=== PATIENT | female | born 1950 | race Caucasian/White ===

== ENCOUNTER 2017-09-18 09:42 | Outpatient (CLI) | payer MEDICARE ==
[2017-09-18 10:07] LABS: Estimated GFR-MDRD - POC Greater than 90
--- NOTE | 2017-09-18 10:43 | RAD ---
LUMBAR SPINE TWO TO THREE VIEW SERIES: INDICATIONS: Lumbar radiculopathy. Neurogenic claudication. FINDINGS: There is postoperative fusion of L4-L5. The intervertebral disk space prosthesis, located to the lef t of midline, does project anterior to the [place] disk space, indicating anterior migration beyond ap propriate location. There is sclerosis of the inferior L1 and superior L2 vertebral bodies, indicati ng modic type III degenerative change. Grade 1 spondylolisthesis is present at L4-L5. There is righ t convexity scoliosis centered at the L3 segment. A metallic clip is seen overlying the midline of t he pelvis, and there are metallic clips at the medial right upper quadrant. IMPRESSION: 1. Anterior migration of disk space prosthesis at L4-L5, located anterior to the [place] disk space. 2. Multilevel degenerative change and dextroscoliosis. POS: NEENA
--- NOTE | 2017-09-18 11:31 | MRI ---
MRI LUMBAR SPINE WITH AND WITHOUT CONTRAST: INDICATIONS: Lumbar radiculopathy. Prior lumbar surgery. Neurogenic claudication. TECHNIQUE: Multiplanar, multisequence imaging obtained. Post contrast images obtained with the administration o f 20 mL of MultiHance IV. FINDINGS: Lumbar vertebrae maintain height. Severe degenerative disk changes are seen at L1-L2 and at L2-L3. Postoperative changes at L4-L5 with pedicle screws and partial fusion at this level. The disk space at L3-L4 is preserved. Prominent anterior osteophytes with mild wedging of L1 and L2. T12-L1: No significant disk bulge or protrusion. L1-L2: Loss of disk space. Posterior disk bulge and hypertrophic changes flatten the thecal sac. F acet hypertrophy. Posterior epidural fat. Mild to moderate central canal stenosis. Bilateral martina inal narrowing. L2-L3: Slight posterior retropulsion. Broad-based disk bulge. Facet and ligamentous hypertrophy. Moderate central canal stenosis. Left foraminal stenosis. L3-L4: Diffuse disk bulge. Facet and ligamentous hypertrophy. Mild to moderate central canal steno sis. Mild left foraminal stenosis. L4-L5: Loss of disk space with partial fusion. No residual or recurrent disk. No significant centr al canal stenosis. Mild left foraminal narrowing secondary to hypertrophic change. L5-S1: There is a central disk protrusion, centrally and slightly to the left, which indents the the [place] sac and displaces the traversing left S1 nerve root. Facet hypertrophy. Mild to moderate centra l canal stenosis. Bilateral foraminal narrowing secondary to diffuse disk bulge and facet hypertroph y. This protrusion shows slight inferior extension. IMPRESSION: 1. Significant degenerative and postoperative changes of the lumbar spine with multilevel degenerati ve change, as described above. 2. Disk protrusion at L5-S1, as described. 3. Disk bulge and central canal stenosis at L1-L2, L2-L3, and L3-L4 is described. POS: NEENA
[2017-09-18] MEDS ORDERED: Gadobenate Dimeglumine 529 MG/1 ML (20ML VIAL) ONE (12:37)
== END 2017-09-18 09:43 | disposition home or self-care (01) ==
LOC: TBSIIMAG 09:42
PROVIDERS: ATTEND Neurological Surgery
DX: G45.0 Vertebro-basilar artery syndrome (principal); M51.16 Intervertebral disc disorders with radiculopathy, lumbar region; M47.896 Other spondylosis, lumbar region; M41.9 Scoliosis, unspecified; M48.061 Spinal stenosis, lumbar region without neurogenic claudication; Z98.1 Arthrodesis status
CPT/HCPCS: 72100; 72158; 82565; A9579

== ENCOUNTER 2017-11-12 10:30 | Inpatient (IN) | payer MEDICARE ==
[2017-11-12 11:19] VITALS: BMI 35.5
[2017-11-19] MEDS ORDERED: Midazolam HCl 2 mg/2 ml Vial ONE (09:59)
[2017-11-19] MEDS ORDERED: Sodium Chloride 0.9% 10 ML ONE (10:07)
[2017-11-19] MEDS ORDERED: CEFAZOLIN/Water 2 GM/20 ML SYRINGE ONE (10:58)
[2017-11-19] MEDS ORDERED: Fentanyl 100 MCG/2 ML VIAL ONE ×2 (11:07→13:20)
[2017-11-19] MEDS ORDERED: Morphine Sulfate 2 MG/ML SYRINGE SLOW IVP PRN (12:22)
[2017-11-19] MEDS ORDERED: Meperidine HCl/PF 25 MG/ML VIAL SLOW IVP PRN (12:22)
[2017-11-19] MEDS ORDERED: HYDROmorphone 2 MG/ML VIAL SLOW IVP PRN (12:22)
[2017-11-19] MEDS ORDERED: Promethazine HCl 25 MG/ML VIAL IM PRN ×2 (12:22→14:51)
[2017-11-19] MEDS ORDERED: Promethazine HCl 25 MG/ML VIAL SLOW IVP PRN (12:22)
[2017-11-19] MEDS ORDERED: Ondansetron HCl/PF 4 MG/2 ML Vial IVP PRN ×2 (12:22→14:51)
--- NOTE | 2017-11-19 12:40 | OP ---
DATE OF PROCEDURE: 11/19/2017 SURGEON: Keyur Aguirre M.D. KNOCKDOWN MAN: Alex Gonzalez PROCEDURE: L2-3 laminectomy, removal of hardware L4-5, exploration, spinal fusion L4-5, posterolater al arthrodesis L2 through L4, pedicle screw instrumentation L2-L5, demineralized bone matrix, local m orselized autograft. PROCEDURE IN DETAIL: The patient was brought to the operating room and intubated. She was rolled in the prone position on gel-filled chest rolls. The previous incision was reopened and extended super iorly exposing L2 through L5. We performed complete left L3 and inferior L2 laminectomies, completel y decompressing the L2-3 and L3 region with particular focus on the left. We next removed rods and n uts at L4-5 bilaterally. We explored this region and could not be convinced that the fusion was murali d. We next placed pedicle screws at L2 and L3 bilaterally using lateral fluoroscopic guidance. Jason was secured from L2 through L5 connected by nuts which were final tightened. The wound was then exte nsively irrigated, immaculate hemostasis was secured. A combination of demineralized bone matrix and local morselized autograft was laid over the laminar and posterolateral surfaces for the purpose of arthrodesis. Vancomycin powder was applied and the wound was closed in anatomic layers over a drain.
[2017-11-19] MEDS ORDERED: SUGAMMADEX SODIUM 500 MG/5 ML VIAL ONE (13:00)
[2017-11-19] MEDS ORDERED: PROPOFOL 200 MG/20 ML VIAL ONE (13:03)
[2017-11-19] MEDS ORDERED: Metoclopramide HCl 10 MG/2 ML VIAL ONE (13:03)
[2017-11-19] MEDS ORDERED: PROVENTIL INHALER 6.7 G (200 INHALATIONS) ONE (13:03)
[2017-11-19] MEDS ORDERED: Lidocaine 1% PF 5 ML VIAL ONE (13:03)
[2017-11-19] MEDS ORDERED: Glycopyrrolate 0.2 MG/ML 5 ML SYRINGE ONE (13:03)
[2017-11-19] MEDS ORDERED: Ondansetron HCl/PF 4 MG/2 ML Vial ONE (13:03)
[2017-11-19] MEDS ORDERED: Dexamethasone 20 MG/5 ML VIAL ONE (13:03)
[2017-11-19] MEDS ORDERED: diphenhydrAMINE 50 MG/ML VIAL IVP PRN (14:51)
[2017-11-19] MEDS ORDERED: traMADol HCl 50 MG TAB PO PRN ×2 (14:51)
[2017-11-19] MEDS ORDERED: diphenhydrAMINE 25 MG CAP PO PRN (14:51)
[2017-11-19] MEDS ORDERED: Mag-Al 1200 mg/1200 mg/30 ML UDCUP PO PRN (14:51)
[2017-11-19] MEDS ORDERED: Promethazine HCl 12.5 MG SUPP PR PRN (14:51)
[2017-11-19] MEDS ORDERED: Promethazine 25 MG TAB PO PRN (14:51)
[2017-11-19] MEDS ORDERED: Milk Of Magnesia 30 ML UDCUP PO PRN (14:51)
[2017-11-19] MEDS ORDERED: HYDROcodone/Acetaminophen 10/325 mg Tablet PO PRN (14:51)
[2017-11-19] MEDS ORDERED: Morphine 4 MG/ML VIAL SLOW IVP PRN (14:58)
[2017-11-19] MEDS ORDERED: Melatonin 3 MG TAB PO PRN (14:59)
[2017-11-19] MEDS: Sodium Chloride 0.9% 1,000 ML IV SCH (15:14)
[2017-11-19] MEDS ORDERED: Ramipril 5 MG CAP PO SCH (16:00)
[2017-11-19] MEDS: HYDROcodone/Acetaminophen 10/325 mg Tablet PO PRN ×2 (16:01→22:15)
[2017-11-19] MEDS: tiZANidine HCl 4 MG TAB PO PRN ×2 (16:02→22:15)
[2017-11-19] MEDS ORDERED: ALPHA LIPOIC ACID FS SCH (21:00)
[2017-11-19] MEDS: ALPRAZolam 1 MG TAB PO SCH (21:13)
[2017-11-19] MEDS: CEFAZOLIN/Water 2 GM/20 ML SYRINGE SLOW IVP SCH (21:13)
[2017-11-19] MEDS: Gabapentin 300 MG CAP PO SCH (21:13)
[2017-11-19] MEDS: Acyclovir 800 mg Tablet PO SCH (21:13)
[2017-11-20] MEDS: CEFAZOLIN/Water 2 GM/20 ML SYRINGE SLOW IVP SCH ×3 (03:30→21:16)
[2017-11-20] MEDS: HYDROcodone/Acetaminophen 10/325 mg Tablet PO PRN ×4 (05:12→20:06)
[2017-11-20] MEDS: Levothyroxine 175 MCG TAB PO SCH (05:12)
[2017-11-20] MEDS: Sodium Chloride 0.9% 1,000 ML IV SCH ×2 (05:15→19:34)
--- NOTE | 2017-11-20 07:07 | PRG ---
DATE OF SERVICE: 11/20/2017 ATTENDING PHYSICIAN: Dr. Keyur Aguirre. SUBJECTIVE: The patient is a 67-year-old female postoperative day #1 from removal of hardware and extension of lumbar fusion L2-L4. Overnight, she reports she did have some pain at the surgical site, but this has been controlled well with p.o. medications and occasional p.r.n. IV morphine. She reports she is tolerating a regular diet and voiding appropriately. She has been ambulating throughout the department. Her CEASAR drain put out 100 mL overnight. Her dressing is dry and incision is intact. We will plan to keep the patient for additional one night to mobilize appropriately, continue pain control as well as monitor CEASAR output. Anticipate her discharge will be tomorrow morning. Please reach out to Neurosurgery for additional questions or concerns. KELSEY
[2017-11-20] MEDS: Acyclovir 800 mg Tablet PO SCH ×2 (09:31→20:05)
[2017-11-20] MEDS: Gabapentin 300 MG CAP PO SCH ×3 (09:32→20:05)
[2017-11-20] MEDS: Ramipril 5 MG CAP PO SCH ×2 (09:33→09:59)
[2017-11-20] MEDS: Loratadine 10 MG TAB PO SCH (09:36)
[2017-11-20] MEDS: Hydrochlorothiazide 25 MG TAB PO SCH ×2 (09:36→09:59)
[2017-11-20] MEDS: tiZANidine HCl 4 MG TAB PO PRN ×2 (09:55→21:11)
[2017-11-20] MEDS: ALPRAZolam 1 MG TAB PO SCH (20:05)
[2017-11-21] MEDS: HYDROcodone/Acetaminophen 10/325 mg Tablet PO PRN ×2 (02:57→07:53)
[2017-11-21] MEDS: CEFAZOLIN/Water 2 GM/20 ML SYRINGE SLOW IVP SCH (06:47)
[2017-11-21] MEDS: Levothyroxine 175 MCG TAB PO SCH (06:47)
[2017-11-21] MEDS: Ramipril 5 MG CAP PO SCH (07:50)
[2017-11-21] MEDS: Hydrochlorothiazide 25 MG TAB PO SCH (07:50)
[2017-11-21] MEDS: Loratadine 10 MG TAB PO SCH (07:51)
[2017-11-21] MEDS: Gabapentin 300 MG CAP PO SCH (07:51)
[2017-11-21] MEDS: Acyclovir 800 mg Tablet PO SCH (07:51)
--- NOTE | 2017-11-21 11:45 | DIS ---
ATTENDING PHYSICIAN: Dr. Keyur Aguirre DATE OF ADMISSION: 11/19/2017 DATE OF DISCHARGE: 11/21/2017 DISCHARGE SUMMARY: The patient is a 67-year-old female status post removal of hardware and extension of fusion L2-L4. Her postoperative course was uncomplicated. Her pain was well controlled with p.o . medications, she was tolerating regular diet, and she was voiding appropriately. The patient did h ave a CEASAR drain placed intraoperatively and this output trended down nicely. CEASAR was removed on postop erative day #2. I am seeing the patient at the bedside. She is awake, alert, in no acute distress. She gets up with out difficulty and is ambulating easily. Her dressing is dry. She has 5/5 strength throughout. No focal motor weakness, no reflex asymmetry. We will plan to dismiss the patient to home. We will remove her CEASAR drain prior to discharge. I disc ussed home care precautions and reasons to reach out to us sooner. We will plan to follow up the pat ient in the office in 2 weeks with x-rays. I provided her prescriptions for [place], tramadol and Kefl ex.
[2017-11-21 11:47] VITALS: BP 161/73; TEMP 98.4
== END 2017-11-21 12:30 | disposition home or self-care (01) | DRG 460 ==
LOC: SURG A 11-19 07:53 → SURG B 11-19 14:17
PROVIDERS: ADMIT Neurological Surgery; ATTEND Neurological Surgery
PROC: 0SP Lower Joints, Removal (ICD-10-PCS; principal; 2017-11-19)
PROC: 0SG03J1 Fusion of Lumbar Vertebral Joint with Synthetic Substitute, Posterior Approach, Posterior Column, Percutaneous Approach (ICD-10-PCS; 2017-11-19)
PROC: 0SB23ZZ Excision of Lumbar Vertebral Disc, Percutaneous Approach (ICD-10-PCS; 2017-11-19)
PROC: 0SG03K1 Fusion of Lumbar Vertebral Joint with Nonautologous Tissue Substitute, Posterior Approach, Posterior Column, Percutaneous Approach (ICD-10-PCS; 2017-11-19)
DX: M54.16 Radiculopathy, lumbar region (principal); M47.26 Other spondylosis with radiculopathy, lumbar region; I10 Essential (primary) hypertension; F41.9 Anxiety disorder, unspecified; R00.2 Palpitations; E07.9 Disorder of thyroid, unspecified
CPT/HCPCS: 76001; A4216; C1713; C1768; G8978-GP-CI; G8979-GP-CI; G8980-GP-CI; J0131; J1100; J2001; J2250; J2270; J2405; J2704; J2765; J3010; J3370; J3490

== ENCOUNTER 2017-11-12 10:53 | Outpatient (CLI) | payer MEDICARE ==
[2017-11-12 12:03] LABS: Hemoglobin 15.6 g/dL (12.0-16.0); Mean Corpuscular HGB CONC 33.9 g/dL (32.0-36.0); Mean Corpuscular Hemoglobin 30.6 pg (27.0-31.0); Mean Corpuscular Volume 90.2 fL (78.0-98.0); Mean Platelet Volume 7.9 fL (7.4-10.4); Platelet Count 284 thou/uL (130-400); RBC Distribution Width 12.3 % (11.5-14.5); White Blood Cell (WBC) Count 5.3 thou/uL (4.8-10.8)
[2017-11-12 12:04] LABS: Anion Gap 14 mmol/L (10-20); BUN (Urea Nitrogen) 14 mg/dL (9.8-20.1); Calc. Creatinine Clearance 0 mL/min (70-130); Calcium 10.1 mg/dL (7.8-10.44); Carbon Dioxide 27 mmol/L (23-31); Chloride 98 mmol/L (98-107); Estimated GFR-MDRD 85; Glucose 99 mg/dL (80-115); Potassium 3.6 mmol/L (3.5-5.1); Sodium 135 mmol/L (136-145)
--- NOTE | 2017-11-13 17:42 | EKG ---
Test Reason : Blood Pressure : / mmHG Vent. Rate : 070 BPM Atrial Rate : 070 BPM P-R Int : 180 ms QRS Dur : 090 ms QT Int : 402 ms P-R-T Axes : 031 -28 041 degrees QTc Int : 434 ms Normal sinus rhythm Cannot rule out Anterior infarct , age undetermined Abnormal ECG When compared with ECG of 22-MAR-2011 10:54, No significant change was found Confirmed by DR. Julián METCALF ([id number]) on 11/13/2017 5:41:53 PM Referred By: QUAN Confirmed By:DR. Julián METCALF
== END 2017-11-12 10:54 | disposition home or self-care (01) ==
LOC: LABBT 10:53
PROVIDERS: ATTEND Neurological Surgery
DX: Z01.818 Encounter for other preprocedural examination (principal); M54.16 Radiculopathy, lumbar region
CPT/HCPCS: 80048; 85027; 93005; 93010

== ENCOUNTER 2017-12-05 15:14 | Outpatient (CLI) | payer MEDICARE ==
--- NOTE | 2017-12-05 17:24 | RAD ---
LUMBAR SPINE TWO VIEW 12/05/17 HISTORY: Lumbar stenosis. Followup surgery. COMPARISON: 09/18/17. FINDINGS: Posterior spinal fusion hardware from L2-L5 with discectomy changes at L4-5. Anterior subluxation of the disc spacer at L4-5, similar. No evidence of hardware complication. Anterolisthesis of L4-5 is si milar. IMPRESSION: Postoperative changes of posterior spinal fusion at L2-L5 without hardware complication. POS: NEENA
== END 2017-12-05 15:15 | disposition home or self-care (01) ==
LOC: TBSIIMAG 15:14
PROVIDERS: ATTEND Neurological Surgery
DX: M48.062 Spinal stenosis, lumbar region with neurogenic claudication (principal); Z98.1 Arthrodesis status
CPT/HCPCS: 72100

== ENCOUNTER 2023-01-29 06:22 | Inpatient (IN) | payer MEDICARE, OTHER ==
[2023-01-24 10:00] VITALS: BMI 29.9
[2023-01-29] MEDS ORDERED: Vancomycin 1 GM VIAL ONE ×2 (06:37→09:02)
[2023-01-29] MEDS ORDERED: Scopolamine 1 mg/72 hour Patch ONE (06:54)
[2023-01-29] MEDS ORDERED: Lidocaine 1% PF 5 ML VIAL ONE ×2 (06:55→07:14)
[2023-01-29] MEDS ORDERED: Ketorolac Tromethamine 30 MG/ML VIAL ONE ×2 (06:55→09:18)
[2023-01-29] MEDS ORDERED: Ondansetron PF 4 MG/2 ML Vial ONE ×2 (06:55→07:57)
[2023-01-29] MEDS ORDERED: PHENYLEPHRINE-NS 100 MCG/ML 10 ML SYRINGE ONE ×2 (06:55→07:56)
[2023-01-29] MEDS ORDERED: Dexamethasone 20 MG/5 ML VIAL ONE ×2 (06:55→07:57)
[2023-01-29] MEDS ORDERED: Rocuronium Bromide 10 MG/ML (10ML VIAL) ONE ×2 (06:55→07:14)
[2023-01-29] MEDS ORDERED: PROPOFOL 200 MG/20 ML VIAL ONE (06:55)
[2023-01-29 07:05] LABS: Hematocrit 42.2 % (36.0-47.0); Hemoglobin 14.6 g/dL (12.0-16.0); Mean Corpuscular HGB CONC 34.6 g/dL (32.0-36.0); Mean Corpuscular Hemoglobin 32.2 pg (27.0-31.0); Mean Platelet Volume 9.7 fL (7.4-10.4); Platelet Count 288 10x3/uL (130-400); RBC Distribution Width 15.1 % (11.5-14.5); Red Blood Cell (RBC) Count 4.54 mill/uL (4.20-5.40); White Blood Cell (WBC) Count 5.2 10x3/uL (4.8-10.8)
[2023-01-29] MEDS ORDERED: Sodium Chloride 0.9% 100 ML ONE ×2 (07:08→08:37)
[2023-01-29] MEDS ORDERED: CEFAZOLIN 2 GM VIAL ONE (07:08)
[2023-01-29] MEDS ORDERED: Mag-Al 1200 mg/1200 mg/30 ML UDCUP PO PRN (07:10)
[2023-01-29] MEDS ORDERED: Ondansetron PF 4 MG/2 ML Vial IVP PRN (07:10)
[2023-01-29] MEDS ORDERED: Acetaminophen 325 MG TAB PO PRN (07:10)
[2023-01-29] MEDS ORDERED: Midazolam HCl 2 mg/2 ml Vial ONE (07:12)
[2023-01-29] MEDS ORDERED: Ketamine In 0.9 % NaCl 50 MG/5 ML SYRINGE ONE (07:14)
[2023-01-29] MEDS ORDERED: Fentanyl 250 MCG/5 ML VIAL ONE (07:14)
[2023-01-29] MEDS ORDERED: PROPOFOL 20 ML ONE (07:14)
[2023-01-29 07:28] LABS: Anion Gap 13 mmol/L (10-20); BUN (Urea Nitrogen) 9 mg/dL (9.8-20.1); Calc. Creatinine Clearance 96 mL/min (70-130); Calcium 10.1 mg/dL (7.8-10.44); Carbon Dioxide 25 mmol/L (23-31); Chloride 100 mmol/L (98-107); Estimated GFR 92; Glucose 109 mg/dL (83-110); Potassium 3.7 mmol/L (3.5-5.1); Sodium 134 mmol/L (136-145)
[2023-01-29] MEDS ORDERED: Dexmedetomidine 200 MCG/2 ML VIAL ONE (08:37)
[2023-01-29] MEDS ORDERED: Ondansetron HCl/PF 4 MG/2 ML Vial IVP PRN (09:16)
[2023-01-29] MEDS ORDERED: HYDROmorphone 2 MG/ML VIAL SLOW IVP PRN (09:16)
[2023-01-29] MEDS ORDERED: PACU-Morphine 4MG/ML VIAL SLOW IVP PRN (09:16)
[2023-01-29] MEDS ORDERED: Morphine Sulfate 2 MG/ML SYRINGE SLOW IVP PRN (09:16)
[2023-01-29] MEDS ORDERED: Promethazine HCl 25 MG/ML VIAL IM PRN (09:16)
[2023-01-29] MEDS ORDERED: SUGAMMADEX SODIUM 200 MG/2 ML VIAL ONE (09:23)
[2023-01-29] MEDS ORDERED: HYDROmorphone 0.5 MG/0.5 ML SYRINGE ONE ×3 (10:22→11:28)
[2023-01-29] MEDS ORDERED: fentaNYL 50 mcg/mL 1 mL Vial ONE ×2 (10:56→11:11)
[2023-01-29] MEDS ORDERED: Morphine 4 MG/ML VIAL ONE (11:49)
[2023-01-29] MEDS ORDERED: Morphine 2 MG/ML VIAL ONE (12:52)
[2023-01-29] MEDS: traMADol HCl 50 MG TAB PO PRN (13:56)
[2023-01-29] MEDS: Propranolol 10 MG TAB PO SCH ×3 (14:04→20:10)
[2023-01-29] MEDS: Hydrochlorothiazide 25 MG TAB PO SCH (14:04)
[2023-01-29] MEDS: BuPROPion XL 150 MG ER.TAB PO SCH (14:04)
[2023-01-29] MEDS: Gabapentin 300 MG CAP PO SCH ×3 (14:04→20:10)
[2023-01-29] MEDS: Ramipril 5 MG CAP PO SCH (14:04)
[2023-01-29] MEDS: CEFAZOLIN 2 GM in Sodium Chloride 0.9% 100 ML IVPB SCH ×2 (14:05→20:11)
[2023-01-29] MEDS: Sertraline 100 MG TAB PO SCH (14:05)
[2023-01-29] MEDS: Sodium Chloride 0.9% 1,000 ML IV SCH ×2 (14:16→20:09)
[2023-01-29] MEDS: HYDROcodone/Acetaminophen 10/325 mg Tablet PO PRN ×2 (15:57→20:10)
[2023-01-29] MEDS: Morphine 2 MG/ML VIAL SLOW IVP PRN (17:53)
[2023-01-29] MEDS: Acyclovir 800 mg Tablet PO SCH (20:09)
[2023-01-29] MEDS: ALPRAZolam 1 MG TAB PO SCH (20:09)
[2023-01-29] MEDS: Cyclobenzaprine 10 MG TAB PO PRN (20:10)
[2023-01-30] MEDS: CEFAZOLIN 2 GM in Sodium Chloride 0.9% 100 ML IVPB SCH ×3 (05:22→20:37)
[2023-01-30] MEDS: Levothyroxine 175 MCG TAB PO SCH (05:22)
[2023-01-30] MEDS: HYDROcodone/Acetaminophen 10/325 mg Tablet PO PRN ×3 (05:23→20:36)
[2023-01-30] MEDS: Ramipril 5 MG CAP PO SCH (08:10)
[2023-01-30] MEDS: Sertraline 100 MG TAB PO SCH (08:12)
[2023-01-30] MEDS: Gabapentin 300 MG CAP PO SCH ×3 (08:12→20:36)
[2023-01-30] MEDS: BuPROPion XL 150 MG ER.TAB PO SCH (08:13)
[2023-01-30] MEDS: Acyclovir 800 mg Tablet PO SCH ×2 (08:13→20:36)
[2023-01-30] MEDS: Propranolol 10 MG TAB PO SCH ×3 (08:14→20:35)
[2023-01-30] MEDS: Hydrochlorothiazide 25 MG TAB PO SCH (08:15)
[2023-01-30] MEDS ORDERED: FLU VACC QS2023(65UP)/MF59C/PF 60 MCG/0.5 ML SYRINGE IM ONE (09:00)
[2023-01-30] MEDS: Milk Of Magnesia 30 ML UDCUP PO PRN (12:30)
[2023-01-30] MEDS: traMADol HCl 50 MG TAB PO PRN (12:30)
[2023-01-30] MEDS: Sodium Chloride 0.9% 1,000 ML IV SCH ×2 (16:20→20:37)
[2023-01-30] MEDS: Cyclobenzaprine 10 MG TAB PO PRN (20:35)
[2023-01-30] MEDS: ALPRAZolam 1 MG TAB PO SCH (20:35)
[2023-01-31] MEDS: CEFAZOLIN 2 GM in Sodium Chloride 0.9% 100 ML IVPB SCH ×3 (05:51→22:02)
[2023-01-31] MEDS: Levothyroxine 175 MCG TAB PO SCH (05:51)
[2023-01-31] MEDS: HYDROcodone/Acetaminophen 10/325 mg Tablet PO PRN ×3 (05:53→22:02)
[2023-01-31] MEDS: Ramipril 5 MG CAP PO SCH (09:02)
[2023-01-31] MEDS: BuPROPion XL 150 MG ER.TAB PO SCH (09:03)
[2023-01-31] MEDS: Sertraline 100 MG TAB PO SCH (09:03)
[2023-01-31] MEDS: Propranolol 10 MG TAB PO SCH ×3 (09:03→21:49)
[2023-01-31] MEDS: Acyclovir 800 mg Tablet PO SCH ×2 (09:04→21:50)
[2023-01-31] MEDS: Hydrochlorothiazide 25 MG TAB PO SCH (09:04)
[2023-01-31] MEDS: Gabapentin 300 MG CAP PO SCH ×3 (09:04→21:50)
[2023-01-31] MEDS: traMADol HCl 50 MG TAB PO PRN (13:16)
[2023-01-31] MEDS: Sodium Chloride 0.9% 1,000 ML IV SCH (13:17)
[2023-01-31] MEDS: ALPRAZolam 1 MG TAB PO SCH (21:50)
[2023-02-01 01:00] VITALS: TEMP 98
[2023-02-01] MEDS: CEFAZOLIN 2 GM in Sodium Chloride 0.9% 100 ML IVPB SCH (05:37)
[2023-02-01] MEDS: Sodium Chloride 0.9% 1,000 ML IV SCH (05:37)
[2023-02-01] MEDS: HYDROcodone/Acetaminophen 10/325 mg Tablet PO PRN ×3 (05:49→13:20)
[2023-02-01] MEDS: Levothyroxine 175 MCG TAB PO SCH (05:50)
[2023-02-01] MEDS: Gabapentin 300 MG CAP PO SCH (09:40)
[2023-02-01] MEDS: Hydrochlorothiazide 25 MG TAB PO SCH (09:41)
[2023-02-01] MEDS: Sertraline 100 MG TAB PO SCH (09:41)
[2023-02-01] MEDS: Ramipril 5 MG CAP PO SCH (09:42)
[2023-02-01] MEDS: Propranolol 10 MG TAB PO SCH (09:43)
[2023-02-01] MEDS: Acyclovir 800 mg Tablet PO SCH (09:45)
[2023-02-01] MEDS: BuPROPion XL 150 MG ER.TAB PO SCH (09:45)
[2023-02-01] MEDS: traMADol HCl 50 MG TAB PO PRN (10:59)
[2023-02-01 12:30] VITALS: BP 146/78
[2023-02-01] MEDS: Milk Of Magnesia 30 ML UDCUP PO PRN (13:21)
[2023-02-01] MEDS: Morphine 2 MG/ML VIAL SLOW IVP PRN (15:26)
== END 2023-02-01 15:38 | disposition swing bed (61) | DRG 460 ==
LOC: SURG A 06:22 → T4-B 13:32
PROVIDERS: ADMIT Neurological Surgery; ATTEND Neurological Surgery
PROC: 0SP004Z Removal of Internal Fixation Device from Lumbar Vertebral Joint, Open Approach (ICD-10-PCS; principal; 2023-01-29)
PROC: 0RG6071 Fusion of Thoracic Vertebral Joint with Autologous Tissue Substitute, Posterior Approach, Posterior Column, Open Approach (ICD-10-PCS; 2023-01-29)
PROC: 00NX0ZZ Release Thoracic Spinal Cord, Open Approach (ICD-10-PCS; 2023-01-29)
PROC: 00NY0ZZ Release Lumbar Spinal Cord, Open Approach (ICD-10-PCS; 2023-01-29)
PROC: 0RGA071 Fusion of Thoracolumbar Vertebral Joint with Autologous Tissue Substitute, Posterior Approach, Posterior Column, Open Approach (ICD-10-PCS; 2023-01-29)
PROC: 0SG1071 Fusion of 2 or more Lumbar Vertebral Joints with Autologous Tissue Substitute, Posterior Approach, Posterior Column, Open Approach (ICD-10-PCS; 2023-01-29)
DX: M48.05 Spinal stenosis, thoracolumbar region (principal); T84.89XA Other specified complication of internal orthopedic prosthetic devices, implants and grafts, initial encounter; Z91.048 Other nonmedicinal substance allergy status; Z88.8 Allergy status to other drugs, medicaments and biological substances; Z79.899 Other long term (current) drug therapy; I10 Essential (primary) hypertension; E78.5 Hyperlipidemia, unspecified; I48.91 Unspecified atrial fibrillation; F41.9 Anxiety disorder, unspecified; F32.A Depression, unspecified; E03.9 Hypothyroidism, unspecified; Z98.41 Cataract extraction status, right eye; Z98.42 Cataract extraction status, left eye; Z90.710 Acquired absence of both cervix and uterus; Z90.49 Acquired absence of other specified parts of digestive tract; Z98.890 Other specified postprocedural states; Z82.49 Family history of ischemic heart disease and other diseases of the circulatory system; Z83.3 Family history of diabetes mellitus; S22.081D Stable burst fracture of T11-T12 vertebra, subsequent encounter for fracture with routine healing
CPT/HCPCS: 36416; 80048; 85027; 90471; 90694; 93005; 93010; A4314; C1713; C1889; G0008; J1100; J1170; J1885; J2250; J2270; J2272; J2405; J2704; J3010; J3370; J3490; J7050